=== PATIENT | female | born 1960 | race African-American/Black ===

== ENCOUNTER 2016-11-03 23:40 | Emergency (ER) | payer OTHER ==
[~2016-11-03] VITALS: Ht 157.5 cm; Wt 72.6 kg
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
== END 2016-11-04 06:20 | disposition home or self-care (01) ==
LOC: CED 23:40
DX: S13.4XXA Sprain of ligaments of cervical spine, initial encounter (principal); S33.5XXA Sprain of ligaments of lumbar spine, initial encounter; S93.402A Sprain of unspecified ligament of left ankle, initial encounter; S46.912A Strain of unspecified muscle, fascia and tendon at shoulder and upper arm level, left arm, initial encounter; S80.02XA Contusion of left knee, initial encounter; F17.200 Nicotine dependence, unspecified, uncomplicated; Z88.0 Allergy status to penicillin; V49.50XA Passenger injured in collision with unspecified motor vehicles in traffic accident, initial encounter
CPT/HCPCS: 29540; 72040; 72100; 73030; 73562; 73610; 99284